=== PATIENT | male | born 1975 | race African-American/Black ===

== ENCOUNTER 2019-08-11 20:49 | Emergency (ER) | payer OTHER ==
[~2019-08-11] VITALS: Ht 175.3 cm; Wt 79.4 kg
[2019-08-11 21:56] LABS: PLATELET COUNT 182 K/uL (142-355)
[2019-08-11 22:00] LABS: POTASSIUM 3.7 mmol/L (3.6-5.2); SODIUM 138 mmol/L (136-145)
[2019-08-12 02:20] VITALS: BP 112/79; TEMP 98.6
== END 2019-08-12 02:20 | disposition home or self-care (01) ==
LOC: ED 20:49 → EDBD 20:49 → ED 08-12 02:20
PROVIDERS: Family Medicine
DX: R07.89 Other chest pain (principal); K21.9 Gastro-esophageal reflux disease without esophagitis
CPT/HCPCS: 36415; 80053; 82550; 84484; 85027; 93005; 99283